=== PATIENT | male | born 1965 | race Caucasian/White ===

== ENCOUNTER 2016-12-04 11:15 | Emergency (ER) | payer BC, OTHER ==
[2016-12-04] MEDS ORDERED: Tetracaine HCl/PF 0.5% 4 ML Bottle EYERT ONE (11:23)
[2016-12-04] MEDS ORDERED: Balanced Salt Solution Ophth Irrig 30 ML Bottle EYERT ONE (11:23)
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
[2016-12-04 12:09] VITALS: BP 190/85
[2016-12-04] MEDS ORDERED: Diphtheria,Pertussis(Acell),Tetanus Vaccine 0.5 ML SDV IM ONE (12:13)
== END 2016-12-04 12:25 | disposition home or self-care (01) ==
LOC: LL.ED 11:15
DX: S05.01XA Injury of conjunctiva and corneal abrasion without foreign body, right eye, initial encounter (principal); T15.11XA Foreign body in conjunctival sac, right eye, initial encounter; Y92.63 Factory as the place of occurrence of the external cause; Y99.0 Civilian activity done for income or pay; Z23 Encounter for immunization
CPT/HCPCS: 90471; 90715; 99283; A9270; 65205